=== PATIENT | male | born 1980 | race Hispanic/Latino ===

== ENCOUNTER 2017-11-10 07:44 | Emergency (ER) | payer SELFPAY ==
[~2017-11-10] VITALS: Ht 170.2 cm; Wt 77.0 kg
[2017-11-10 08:28] LABS: INFLUENZA A NONE DETECTED (NONE DETECT); INFLUENZA B NONE DETECTED (NONE DETECT)
[2017-11-10] MEDS ORDERED: AMOXICILLIN500 MG PO (08:31)
[2017-11-10 08:32] VITALS: BP 128/82
== END 2017-11-10 08:38 | disposition home or self-care (01) | DRG 153 ==
LOC: ED 07:44
PROVIDERS: Emergency Medicine
DX: J02.9 Acute pharyngitis, unspecified (principal)